=== PATIENT | female | born 1925 | race Caucasian/White ===

== ENCOUNTER 2016-07-31 10:27 | Inpatient (IN) | payer OTHER, MEDICARE ==
[~2016-07-31] VITALS: Ht 152.4 cm; Wt 61.2 kg
[~2016-07-31 10:27] MED LIST: ASPIRIN81 M4 PO; AUGMENTIN 875-1 EACH PO; DONEPEZIL HCL10 M1 PO; ELIQUIS2.5 M1 PO; FUROSEMIDE20 M1 PO; ISOSORBIDE MONO60 M1 PO; LEVSIN-SL0.125 MG SL; METOPROLOL SUCC50 M2 PO; TRAZODONE HCL50 M1 PO
--- NOTE | 2016-07-31 10:48 | NUR ---
PT TO ED WITH C/O PAIN TO RIGHT 4TH TOE, PER DAUGHTER PT HAS HX OF GOUT.
--- NOTE | 2016-07-31 11:03 | ED UPPER/LOWER EXTREMITY COMPL ---
History of Present Illness General Chief Complaint: Lower Extremity Problems Stated Complaint: TOE INFECTION Source: patient, family Exam Limitations: no limitations Vital Signs & Intake/Output Vital Signs & Intake/Output Vital Signs Date Time Temp Pulse Resp B/P Pulse O2 O2 Flow FiO2 Ox Delivery Rate 07/31 1451 63 18 129/64 98 07/31 1200 98 Room Air 07/31 1049 97.9 68 20 110/64 96 Room Air Room Air Allergies Coded Allergies: NO KNOWN ALLERGIES (11/04/11) Reconcile Medications Apixaban (Eliquis) 2.5 MG TABLET 1 TAB PO DAILY BLOOD THINNER (Reported) Reason to Stop at ADM: pre OR Aspirin (Aspirin*) 81 MG TAB.CHEW 2 TAB PO DAILY HEART HEALTH (Reported) Reason to Stop at ADM: pre OR Donepezil HCl 10 MG TABLET 1 TAB PO DAILY DEMENTIA (Reported) Furosemide 20 MG TABLET 1 TAB PO DAILY WATER PILL (Reported) Reason to Stop at ADM: LISA Isosorbide Mononitrate (Isosorbide Mononitrate ER) 60 MG TAB.ER.24H 1 TAB PO DAILY HEART (Reported) Metoprolol Succinate 50 MG TAB.ER.24H 1 TAB PO DAILY HEART (Reported) Ramipril 10 MG CAPSULE 1 CAP PO DAILY Blood pressure (Reported) Reason to Stop at ADM: LISA Sertraline HCl 50 MG TABLET 1 TAB PO DAILY Depression (Reported) Triage Note: PT TO ED WITH C/O PAIN TO RIGHT 4TH TOE, PER DAUGHTER PT HAS HX OF GOUT. Triage Nurses Notes Reviewed? yes Onset: Gradual Duration: constant Timing: recent history Severity: moderate Severity Numbers: 5 Method of Injury: unknown No Modifying Factors: none HPI: Patient is an 89-year-old female with past medical history of gout, hypertension and pacemaker placement, AFIB, [place] and osteomyelitis to the left fifth digit of hand with surgical debridement performed here [facility] remotely who presents emergency room with son for concerns of an unknown onset of left second toe and right fourth toe swelling. Patient states that the pain is only onset with putting on shoes Denies any discharge denies any redness or warmth or mechanism of injury or trauma. Patient hasn't taken any medications for symptoms. Denies any fevers (SHANIKA COHEN) Past History Travel History Traveled to [place] past 21 day No Medical History Any Pertinent Medical History? see below for history Neurological: TIA EENT: NONE Cardiovascular: AFIB, CAD, hypertension, myocardial infarction, NSTEMI, PACEMAKER LCW CABG X 3 DYSLIPIDEMIA ABDOMINAL AND ILLAC ANEURYSMS MITRAL AND TRICUSPID REGURGATATION PULMONARY HTN Respiratory: NONE Gastrointestinal: NONE Hepatic: NONE Renal: NONE Musculoskeletal: NONE Psychiatric: anxiety Endocrine: BOARDERLINE DIABETES Blood Disorders: VITAMIN D DEFICENCY Cancer(s): NONE OPERATIONS LOGISTICS ANALYST/Reproductive: NONE History of MRSA: No History of VRE: No History of CDIFF: No Influenza Vaccine: 07/01/13 Surgical History Surgical History: CABG, CARDIAC CATH, PACEMAKER Psychosocial History Who do you live with Son Services at Home None What is your primary language Slovenian Tobacco Use: Never used ETOH Use: denies use Illicit Drug Use: denies illicit drug use Family History Hx Contributory? No (SHANIKA COHEN) Review of Systems Review of Systems Constitutional: Reports: see HPI. Denies: chills, fever. EENTM: Reports: no symptoms. Respiratory: Reports: no symptoms. Cardiovascular: Reports: no symptoms. Gastrointestinal/Abdominal: Reports: no symptoms. Genitourinary: Reports: no symptoms. Musculoskeletal: Reports: see HPI, joint swelling. Denies: joint pain. Skin: Reports: see HPI. Denies: erythema. Neurological/Psychological: Reports: no symptoms. Hematologic/Endocrine: Reports: no symptoms. Immunological: Reports: no symptoms. All Other Systems: Reviewed and Negative (SHANIKA COHEN) Physical Exam Physical Exam General Appearance: no apparent distress, alert Head: atraumatic Cardiovascular/Respiratory: tachycardia Peripheral Pulses: 2+ dorsalis pedis (R), 2+ dorsalis pedis (L) Back: normal inspection Neurologic/Tendon: normal sensation, normal motor functions, normal tendon functions, responds to pain, no evidence tendon injury, no pulse deficit Skin: intact, normal color, warm/dry Comments: Well-developed well-nourished no apparent distress. HEENT: Atraumatic, extraocular motion intact Neck: Supple, no lymphadenopathy Back: Nontender Respiratory: No respiratory distress Extremities: Bilateral ankles normal inspection nontender Bilateral lower extremity dermatomes intact, pedal pulses +2 capillary refill less than 2 seconds Neuro: Alert and oriented x3 Psych: Mood affect normal, normal memory normal judgment. Diagram Feet Top 1) 8 mm fluctuance noted, nontender no erythema no warmth no discharge 2) 8 mm fluctuance noted, nontender no erythema no warmth no discharge (SHANIKA COHEN) Progress Differential Diagnosis: arterial insufficiency, compartment syndrome, contusion, dislocation, DVT, fracture, gout, septic arthritis, sprain, tendon injury, OSTEOMYELITIS, CYSTS, GOUT, CELLULITIS, PSEUDOGOUT Plan of Care: Orders Procedure Date/time Status Nothing by Mouth 08/01 B Active CBC WITHOUT DIFFERENTIAL 08/01 0600 Active BASIC ELECTROLYTES PLUS BUN&CR 08/01 0600 Active Heart Healthy Diet 07/31 D Active Pathway - chart 07/31 1417 Active Pathway - chart 07/31 1342 Active House Staff 07/31 1342 Active Code Status 07/31 1342 Active OXYGEN SETUP (GEN) 07/31 1333 Active Saline Lock 07/31 1333 Active Admit to inpatient 07/31 1333 Active Vital Signs 07/31 1333 Active Activity/Ambulation 07/31 1333 Active Code Status 07/31 1333 Complete Patient Data 07/31 1325 Active Add-on Test (ER Only) 07/31 1319 Active COMPREHENSIVE METABOLIC PANEL 07/31 1319 Active EKG 07/31 1319 Active Patient Data 07/31 1318 Active COMPREHENSIVE METABOLIC PANEL 07/31 1235 Complete Katz, Insertion/Removal/Asses 07/31 1220 Complete WESTERGREN SED RATE 07/31 1138 Complete C-REACTIVE PROTEIN 07/31 1138 Complete CBC WITHOUT DIFFERENTIAL 07/31 1138 Complete Lab Add-on Test 07/31 UNK Active VTE Mechanical Prophylaxis 07/31 UNK Active Intake & Output 07/31 UNK Active Current Medications Sig/Tereso Start time Last Medication Dose Stop Time Status Admin Donepezil HCl 10 MG DAILY 08/01 1000 AC (Aricept) Isosorbide 60 MG DAILY 08/01 1000 AC Mononitrate (Imdur) Metoprolol Succinate 50 MG DAILY 08/01 1000 AC (Toprol XL) Sertraline HCl 50 MG DAILY 08/01 1000 AC (Zoloft) Acetaminophen 650 MG Q6P PRN 07/31 1430 AC (Tylenol) Ketorolac 15 MG Q6P PRN 07/31 1430 AC Tromethamine 08/05 1429 (Toradol) Morphine Sulfate 2 MG Q6P PRN 07/31 1430 AC (Morphine) Laboratory Tests 07/31/16 1235: Anion Gap 10, Estimated GFR 47 L, BUN/Creatinine Ratio 31.8 H, Glucose 97, Calcium 9.6, Total Bilirubin 0.7, AST 24, ALT 30, Alkaline Phosphatase 84, C- Reactive Prot, Quant < 0.5, Total Protein 7.1, Albumin 3.6, Globulin 3.5, Albumin/Globulin Ratio 1.0 L, CBC w Diff NO MAN DIFF REQ, RBC 4.58, MCV 88.3, MCH 28.9, RDW 15.3 H, MPV 8.3, Gran % 71.9, Lymphocytes % 17.4 L, Monocytes % 9.2, Eosinophils % 1.2, Basophils % 0.3, Absolute Granulocytes 5.1, Absolute Lymphocytes 1.2, Absolute Monocytes 0.7 H, Absolute Eosinophils 0.1, Absolute Basophils 0, PUBS MCHC 32.7 L, ESR Westergren 11 07/31/16 1220: Urine Color Cancelled, Urine Clarity Cancelled, Urine pH Cancelled, Ur Specific [place] Cancelled, Urine Protein Cancelled, Urine Ketones Cancelled, Urine Nitrite Cancelled, Urine Bilirubin Cancelled, Urine Urobilinogen Cancelled, Ur Leukocyte Esterase Cancelled, Ur Microscopic Cancelled, Urine Hemoglobin Cancelled, Urine Glucose Cancelled Microbiology 07/31 1220 URINE ROUT: Urine Culture - CAN Cancelled: Cancelled via OE: Error At this time patient has no signs of infectious process to patient's toes. Patient does have nontender fluctuant soft tissue swelling to the toes mentioned in the exam findings X-rays and blood work will be obtained for further evaluation Denies any systemic signs or symptoms of infection. No active discharge no erythema no warmth and no signs of cellulitis Skin is intact 07/31/2016 1:27:56 PM x-rays show concerns of acute osteomyelitis to patient's right fourth digit. Patient has no emergent warranting of antibiotics and will be warranted for admission and have MRI and bone biopsy to evaluate proper antibiotics for patient's critical findings of osteomyelitis. Outpatient treatment at this time would be medically harmful. Discussed disposition plan with family members were aware and have no questions. (JOSHUA NORTH,SHANIKA) Diagnostic Imaging: Viewed by Me: Radiology Read. Radiology Impression: acute abnormality Initial ED EKG: normal p-waves, normal QRS complex, 127 BPM SINUS TACHYCARDIA Comments: PATIENT: SERGIO ARAUJO PRESENT AGE: 89 PATIENT ACCOUNT NO: [id number] : [birth year] LOCATION: [facility] ORDERING PHYSICIAN: SHANIKA NORTH SERVICE DATE: 07/31/16 EXAM TYPE: RAD - XRY-TOES, LEFT EXAMINATION: XR TOES, LEFT CLINICAL INFORMATION: Left second toe swelling at the level of the phalanx COMPARISON: None TECHNIQUE: 3 views of the left toes were obtained. FINDINGS: Marked degenerative changes of the first metatarsophalangeal joint with hallux valgus deformity. Pannus formation is seen at this level as well as along the tarsal bones and second metatarsophalangeal joint. There is extensive soft tissue swelling of the second toe without erosive changes. IMPRESSION: 1. Soft tissue swelling of the second toe without erosive changes to suggest osteomyelitis. More sensitive evaluation can be obtained with MRI as clinically indicated. 2. Extensive degenerative changes as detailed above, worst at the metatarsophalangeal joints of the first and second toes as well as along the tarsal bones. PATIENT: SERGIO ARAUJO PRESENT AGE: 89 PATIENT ACCOUNT NO: [id number] : [birth year] LOCATION: [facility] ORDERING PHYSICIAN: SHANIKA NORTH SERVICE DATE: 07/31/16 EXAM TYPE: RAD - XRY-TOES, RIGHT EXAMINATION: XR TOES, RIGHT CLINICAL INFORMATION: Right fourth phalanx swelling. COMPARISON: 10/21/2014 TECHNIQUE: 3 views of the right toes were obtained. FINDINGS: Soft tissue swelling of the fourth toe centered at the interphalangeal joints with erosive changes and near complete erosion of the middle phalanx. Marked degenerative changes of the first metatarsophalangeal joint without acute erosive change. Pannus formation is seen at the first metatarsophalangeal joint, fifth metatarsophalangeal joint along the lateral aspect of the tarsometatarsal joint. IMPRESSION: 1. Acute osteomyelitis of the fourth toe with near complete erosion of the middle phalanx. 2. Extensive degenerative changes as above. (JOSHUA NORTH,SHANIKA) Departure Departure Disposition: STILL A PATIENT Condition: Stable Clinical Impression Primary Impression: Acute osteomyelitis of toe of right foot Referrals: BAYRON NAGY,BRITTNEE Shah (PCP/Family) Departure Forms: Customer Survey General Discharge Information Admission Note Spoke With: HANSEL RAY MD Documentation of Exam: Documentation of any treatments & extenuating circumstances including Concerns Regarding Discharge (functional status, medication knowledge or non-compliance, living conditions, etc.) that warrant an admission rather than observation: [ Discussed patient with Dr. Ray who agrees with general medicine admission for concerns of acute osteomyelitis of the right toe. Antibiotics will currently be withheld until MRI and biopsy of the bone and culture to be obtained, outpatient treatment at this time due to critical findings of osteomyelitis would be medically harmful. Patient requires podiatry consultation] (SHANIKA COHEN) PA/LACING CUTTER Co-Sign Statement Statement: ED Attending supervision documentation- x I saw and evaluated the patient. I have also reviewed all the pertinent lab results and diagnostic results. I agree with the findings and the plan of care as documented in the PA's/LACING CUTTER's documentation. [] I have reviewed the ED Record and agree with the PA's/LACING CUTTER's documentation. [] Additions or exceptions (if any) to the PAs/LACING CUTTER's note and plan are summarized below: [] (FELIBERTO NAGY,ALYSHA) Critical Care Note Critical Care Note Critical Care Time: 30-74 min (SHANIKA COHEN)
--- NOTE | 2016-07-31 11:15 | NUR ---
PT ARRIVES AMBULATORY WITH DAUGHTER FOR EVAL OF PAIN OF RIGHT FORTH TOE. DAUGHTER REPORTS THAT PT HAS A LUMP ON THE TOE THAT "LOOKS LIKE THE SAME KIND OF INFECTION SHE HAD ON HER FINGER AROUND [place] AND THEY HAD TO AMPUTATE THAT." DAUGHTER STATES SHE CONTACTED PT PCP AND WAS ADVISED TO BRING PT TO ER. PT NOTED TO HAVE A PALE LUMP ON RIGHT FORTH TOE AND LEFT SECOND TOE. PT STATES IT ONLY HURTS HER WHEN SHE PUTS PRESSURE ON IT. DENIES ANY OTHER COMPLAINTS. PT IS NOTED TO BE PLEASANTLY CONFUSED. VSS. NO ACUTE DISTRESS NOTED. WILL MONITOR.
--- NOTE | 2016-07-31 11:36 | NUR ---
TRIAGE NOTE ACKNOWLEDGED AND RN CARE ASSUMED PT EVALUATED BY PA STUDENT AND SHANIKA NORTH
--- NOTE | 2016-07-31 12:43 | NUR ---
PT TO AND BACK FROM RADIOLOGY
[2016-07-31 12:52] LABS: ABSOLUTE BASOPHIL COUNT 0 /CUMM (0.0-0.2); ABSOLUTE EOSINOPHIL COUNT 0.1 /CUMM (0.0-0.7); ABSOLUTE GRANULOCYTE CT 5.1 /CUMM (1.4-6.5); ABSOLUTE LYMPH COUNT 1.2 /CUMM (1.2-3.4); ABSOLUTE MONOCYTE COUNT 0.7 /CUMM (0.10-0.60); BASOPHIL % 0.3 % (0.0-2.0); EOSINOPHIL % 1.2 % (0-5); GRANULOCYTE % 71.9 % (42.2-75.2); HEMATOCRIT 40.4 % (37-47); MEAN CORPUSCULAR HGB 28.9 PG (27.0-31.0); MEAN CORPUSCULAR HGB CONC 32.7 G/DL (33.0-37.0); MEAN CORPUSCULAR VOLUME 88.3 FL (81.0-99.0); MEAN PLATELET VOLUME 8.3 FL (7.4-10.4); PLATELET COUNT 162 /CUMM (130-400); RBC DISTRIBUTION WIDTH 15.3 % (11.5-14.5); RED BLOOD CELL CT 4.58 /CUMM (4.20-5.40); WHITE BLOOD CELL COUNT 7.2 /CUMM (4.8-10.8)
--- NOTE | 2016-07-31 12:53 | RADIOLOGY REPORT ---
EXAMINATION: XR TOES, LEFT CLINICAL INFORMATION: Left second toe swelling at the level of the phalanx COMPARISON: None TECHNIQUE: 3 views of the left toes were obtained. FINDINGS: Marked degenerative changes of the first metatarsophalangeal joint with hallux valgus deformity. Pannus formation is seen at this level as well as along the tarsal bones and second metatarsophalangeal joint. There is extensive soft tissue swelling of the second toe without erosive changes. IMPRESSION: 1. Soft tissue swelling of the second toe without erosive changes to suggest osteomyelitis. More sensitive evaluation can be obtained with MRI as clinically indicated. 2. Extensive degenerative changes as detailed above, worst at the metatarsophalangeal joints of the first and second toes as well as along the tarsal bones.
--- NOTE | 2016-07-31 12:55 | RADIOLOGY REPORT ---
EXAMINATION: XR TOES, RIGHT CLINICAL INFORMATION: Right fourth phalanx swelling. COMPARISON: 10/21/2014 TECHNIQUE: 3 views of the right toes were obtained. FINDINGS: Soft tissue swelling of the fourth toe centered at the interphalangeal joints with erosive changes and near complete erosion of the middle phalanx. Marked degenerative changes of the first metatarsophalangeal joint without acute erosive change. Pannus formation is seen at the first metatarsophalangeal joint, fifth metatarsophalangeal joint along the lateral aspect of the tarsometatarsal joint. IMPRESSION: 1. Acute osteomyelitis of the fourth toe with near complete erosion of the middle phalanx. 2. Extensive degenerative changes as above.
--- NOTE | 2016-07-31 13:15 | NUR ---
CAN GARCIA AT BEDSIDE TO DISCUSS PLAN TO ADMIT. PT AGREEABLE TO PLAN. 20G IV PLACED IN LEFT AC. FLUSHED PER PROTOCOL. NO REDNESS, SWELLING, PAIN, OR HEAT AT SITE. PT TOLERATED PROCEDURE WELL.
[2016-07-31] MEDS ORDERED: SERTRALINE HCL50 MG PO (14:23)
[2016-07-31] MEDS ORDERED: RAMIPRIL10 M1 PO (14:23)
--- NOTE | 2016-07-31 14:26 | History & Physical ---
VIDA KIMBALL MD 07/31/16 1412: General Information and HPI MD Statement: I have seen and personally examined SERGIO ARAUJO and documented this H&P. The patient is a 89 year old F who presented with a patient stated chief complaint of right foot pain. Source of Information: patient, family Exam Limitations: no limitations History of Present Illness: 89 year old woman with significant past medical history of Atrial fibrillation on eliquis, CAD/OK s/p CABGx3 & Packemaker in 2000, and gout seen for evaluation of right foot pain. Patient told her son Teddy, whom she lives with, that her right foot was bothering her this morning. She reports to medicine staff that it has been painful for roughly one month. She reports mild pain/discomfort in the foot without any history of trauma. No specific alleviating/aggravating factors. She was recently admitted to [facility] from 05/18/16-05/20/16 for left upper extremity 5th digit osteomyelitis requiring distal amputation. Additionally she denies any headache, fever, chills, chest pain, palpitations, shortness of breath, nausea, vomiting, diarrhea, urinary frequency/urgency/ burning/pain, constipation, numbness/tingling. 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" Allergies/Medications Allergies: Coded Allergies: NO KNOWN ALLERGIES (11/04/11) Home Med list Apixaban (Eliquis) 2.5 MG TABLET 1 TAB PO DAILY BLOOD THINNER (Reported) Reason to Stop at ADM: pre OR Aspirin (Aspirin*) 81 MG TAB.CHEW 2 TAB PO DAILY HEART HEALTH (Reported) Reason to Stop at ADM: pre OR Donepezil HCl 10 MG TABLET 1 TAB PO DAILY DEMENTIA (Reported) Furosemide 20 MG TABLET 1 TAB PO DAILY WATER PILL (Reported) Reason to Stop at ADM: LISA Isosorbide Mononitrate (Isosorbide Mononitrate ER) 60 MG TAB.ER.24H 1 TAB PO DAILY HEART (Reported) Metoprolol Succinate 50 MG TAB.ER.24H 1 TAB PO DAILY HEART (Reported) Ramipril 10 MG CAPSULE 1 CAP PO DAILY Blood pressure (Reported) Reason to Stop at ADM: LISA Sertraline HCl 50 MG TABLET 1 TAB PO DAILY Depression (Reported) Past History Travel History Traveled to [place] past 21 day No Medical History Neurological: TIA EENT: NONE Cardiovascular: AFIB, CAD, hypertension, myocardial infarction, NSTEMI, PACEMAKER LCW CABG X 3 DYSLIPIDEMIA ABDOMINAL AND ILLAC ANEURYSMS MITRAL AND TRICUSPID REGURGATATION PULMONARY HTN Respiratory: NONE Gastrointestinal: NONE Hepatic: NONE Renal: NONE Musculoskeletal: gout Psychiatric: anxiety Endocrine: BOARDERLINE DIABETES Blood Disorders: VITAMIN D DEFICENCY Cancer(s): NONE PET COUNSELOR/Reproductive: NONE History of MRSA: No History of VRE: No History of CDIFF: No Influenza Vaccine: 07/01/13 Surgical History Surgical History: CABG, CARDIAC CATH, PACEMAKER Past Family/Social History Psychosocial History Who Do You Live With? child Services at Home: None Primary Language: Romansh ETOH Use: denies use Illicit Drug Use: denies illicit drug use Living Will? yes Functional Ability ADLs Independent: dressing, eating, toileting, bathing. Review of Systems Review of Systems Constitutional: Reports: see HPI. Exam & Diagnostic Data Last 24 Hrs of Vital Signs/I&O Vital Signs Date Time Temp Pulse Resp B/P Pulse O2 O2 Flow FiO2 Ox Delivery Rate 07/31 1200 98 Room Air 07/31 1049 97.9 68 20 110/64 96 Room Air Room Air Intake & Output 07/31 1600 07/31 0800 07/31 0000 Intake Total 0 Output Total Balance 0 Intake, IV 0 Patient 61.235 kg Weight Physical Exam General Appearance Alert, Oriented X3, Cooperative, No Acute Distress Skin No Rashes, No Breakdown, No Significant Lesion HEENT Atraumatic, EOMI, Mucous Membr. moist/pink Neck Supple Cardiovascular Normal S1, Normal S2, No Murmurs Lungs Clear to Auscultation, Normal Air Movement Abdomen Normal Bowel Sounds, Soft, No Tenderness, No Hepatospenomegaly, No Masses Neurological Normal Speech, Normal Tone Extremities Multiple small lower extremity wounds, Tophaceous changes in bilateral lower extremities, Right lower extremity 4th digit tophi with mild tenderness, no fluctuance, left lower extremity 2nd digit tophi with minimal fluctuance, mild tenderness Vascular Diminished distal pulses Last 24 Hrs of Labs/Carlos: Laboratory Tests 07/31/16 1235: Anion Gap 10, Estimated GFR 47 L, BUN/Creatinine Ratio 31.8 H, Glucose 97, Calcium 9.6, Total Bilirubin 0.7, AST 24, ALT 30, Alkaline Phosphatase 84, C- Reactive Prot, Quant < 0.5, Total Protein 7.1, Albumin 3.6, Globulin 3.5, Albumin/Globulin Ratio 1.0 L, CBC w Diff NO MAN DIFF REQ, RBC 4.58, MCV 88.3, MCH 28.9, RDW 15.3 H, MPV 8.3, Gran % 71.9, Lymphocytes % 17.4 L, Monocytes % 9.2, Eosinophils % 1.2, Basophils % 0.3, Absolute Granulocytes 5.1, Absolute Lymphocytes 1.2, Absolute Monocytes 0.7 H, Absolute Eosinophils 0.1, Absolute Basophils 0, PUBS MCHC 32.7 L, ESR Westergren 11 07/31/16 1220: Urine Color Cancelled, Urine Clarity Cancelled, Urine pH Cancelled, Ur Specific [place] Cancelled, Urine Protein Cancelled, Urine Ketones Cancelled, Urine Nitrite Cancelled, Urine Bilirubin Cancelled, Urine Urobilinogen Cancelled, Ur Leukocyte Esterase Cancelled, Ur Microscopic Cancelled, Urine Hemoglobin Cancelled, Urine Glucose Cancelled Microbiology 07/31 1220 URINE ROUT: Urine Culture - CAN Cancelled: Cancelled via OE: Error Assessment/Plan Assessment: 89 year old woman with multiple medical problems significant for an extensive cardiovascular history and recent admission for left upper extremity 5th digit osteomyelitis requiring amputation seen for evaluation of mild right foot/toe pain. Vital signs on initial evaluation are within normal limits. Physical examination demonstrates multiple tophaceous changes to the digits of hands and feet with minimal tenderness to palpation of the right 4th lower extremity digit and a normal cardiopulmonary examination. Lab work demonstrated WBC 7.2, CRP < 0.05, ESR 11. Xray obtained of left and right feet are suggestive of left 2nd toe and right 4th toe osteomyelitis. Podiatry consult was placed and patient was admitted to the general medicine floor. Possible Osteomyelitis of left 2nd toe & right 4th toe: History of Gout and Osteomyelitis of 5th left finger requiring amputation ( May 2016). Patient has obvious chronic changes suggestive of tophaceous gout. Patient not currently taking any treatment stating she "doesn't wanna take more meds". -NPO for possible debridement -Podiatry consult History of Atrial Fibrillation: -Hold eliquis for possible debridement CAD CABGx3 s/p PM - stable, continue Aspirin, Nitro Hypertension - stable, continue metoprolol Depression - stable, continue sertraline 50mg PO Daily Diet - NPO for possible debridement, start Heart Healthy Diet afterwards DVT PPx - ALPS Code Status - DNR/DNI As Ranked By This Provider Problem List: 1. Acute osteomyelitis of toe of right foot Core Measures/Miscellaneous Acute Coronary Syndrome ACS Diagnosis: No Cerebrovascular Accident CVA/TIA Diagnosis: No Congestive Heart Failure CHF Diagnosis: No Venous Thromboembolism VTE Risk Factors: Acute medical illness, Age > 40 VTE Prophylaxis Ordered Inpt: Mechanical (ALPS/TEDS) No Mech VTE prophylaxis d/t: No contraindications No VTE Pharm Prophylaxis d/t: Surgical contraindication VTE Diagnosis: No VTE Type: NONE VTE Confirmed by (Test): NONE Severe Sepsis Severe Sepsis Present: No Septic Shock Septic Shock Present: No Miscellaneous Documentation Attending Case Discussed With: CORKY JIANG MD Primary Care Physician: BRITTNEE VERMA MD Patient sees these Specialists Dr. Batista Level of Patient Care: General Medicine Consults Needed: Consulting Specialty: Podiatry YVROSE NAGY,YASMEEN 07/31/16 3767: Resident Review Statement Resident Statement: examined this patient, discussed with internal medicine doctor, agreed with internal medicine doctor, discussed with family, reviewed EMR data (avail), discussed with nursing , reviewed images, amended to note Other Findings: 89 yo female with pmh of CAD s/p CABG (2000), NSTEMI s/p biventricular PM (2011) , hx of A.fib on eliquis, gout came with pain in Rt. 4th toe and Lt. 2nd toe for about 1 month. She was recently admitted to [facility] in due to Lt. 5th finger osteomyelitis s/p amputation of PIP joint by Dr. Valdivia. She denies any previous injury on feet. She had discomfort/mild pain on both feet. No fever/chills, cough/sputum, SOB/CP, n/v/abodminal pain. V/S: 97.9F RI 68 RR 20 BP 110/64 pulse Ox 96% on RA on physical exam: General: alert, oriented x 3, not in acute distress, HEENT: PERRLA, EOM intact, moist mucosa, neck: supple, no JVD, cardiovascular: regular, normal S1/S2, systolic murmur, lungs: CTA, abdomen: soft, non-tender, normal bowel sounds, Ext: Lt. 5th PIP amputated, tophi on multiple hand joints, no LE pitting edema, Rt. 4th toe tophi with tenderness, Lt. 2nd toe tophi with tenderness, normal pulses Labs: wbc 7.2, ESR 11, BUN/Cr 35/1.1, CRP< 0.5, Rt. toes X-ray: 1. Acute osteomyelitis of the fourth toe with near complete erosion of the middle phalanx. 2. Extensive degenerative changes as above. Lt. toes x-ray: 1. Soft tissue swelling of the second toe without erosive changes to suggest osteomyelitis. More sensitive evaluation can be obtained with MRI as clinically indicated. 2. Extensive degenerative changes as detailed above, worst at the metatarsophalangeal joints of the first and second toes as well as along the tarsal bones. EKG: Ventricular paced rhythm at rate 124, QTc 520 1. Acute osteomyelitis with gouty tohi: podiatry consult, hold IV antibiotics until getting bone bx, follow CBC, ESR/CRP were unremarkable. NPO after midnight for possible OR procedure tmr. Pain pathway to control pain. 2. CAD s/p CABG: will hold aspirin for now. continue b-dulce 3. Hx of A.fib s/p biventricular PM: pt was on prophylactic dose of eliquis 2.5mg daily (following Dr. Batista). Will hold eliquis for now, resume tmr if patient is not getting any procedure. DVT ppx: mechanical, holding eliquis anticipating bone bx, DNR/I. CORKY JIANG MD 08/01/16 1348: Attending MD Review Statement Attending Statement Attending MD Statement: examined this patient, discuss w/resident/PA/TECHNICAL SALES REPRESENTATIVE, agreed w/resident/PA/TECHNICAL SALES REPRESENTATIVE, reviewed EMR data (avail) Attending Assessment/Plan: 89F PMH chronic atrial fibrillation on eliquis, CAD/OK s/p CABGx3 s/p Packemaker in 2000, Alzheimer's dementia and gout presents with left second and right fourth two erythema and discomfort, with evident tophi present on both toes. Patient is sleepy and confused and unable to provide history, but family at bedside is able to. Patient has been slowly deteriorating for the past 4 years, but more so over the past few months, with confusion, non-sensical speech, and requiring assistance with all ADLs. Cared for by patient's children, lives primarily with son. X-ray shows evidence of osteomyelitis in toes. On exam there are visible tophi and erythema. ESR 8, normal WBC, afebrile, stable vitals. Plan - Admit to general medicine - Hold antibiotics - Podiatry consult - Check uric acid level - Send blood cultures - Continue home medications - Will need alf placement on discharge
--- NOTE | 2016-07-31 15:04 | Cons- Podiatry ---
General Information and HPI Consulting Request Date of Consult: 07/31/16 Requested By: CORKY JIANG MD History of Present Illness: Svetlana is an 89-year-old female who presents today with a recent worsening complaint of pain to the digits of her left and right feet. The patient apparently has a history of chronic gout with tophaceous deposits. The patient denies any systemic signs of infection. Patient denies nausea vomiting fever chills. Allergies/Medications Allergies: Coded Allergies: NO KNOWN ALLERGIES (11/04/11) Home Med List: Apixaban (Eliquis) 2.5 MG TABLET 1 TAB PO DAILY BLOOD THINNER (Reported) Reason to Stop at ADM: pre OR Aspirin (Aspirin*) 81 MG TAB.CHEW 2 TAB PO DAILY HEART HEALTH (Reported) Reason to Stop at ADM: pre OR Donepezil HCl 10 MG TABLET 1 TAB PO DAILY DEMENTIA (Reported) Furosemide 20 MG TABLET 1 TAB PO DAILY WATER PILL (Reported) Reason to Stop at ADM: LISA Isosorbide Mononitrate (Isosorbide Mononitrate ER) 60 MG TAB.ER.24H 1 TAB PO DAILY HEART (Reported) Metoprolol Succinate 50 MG TAB.ER.24H 1 TAB PO DAILY HEART (Reported) Ramipril 10 MG CAPSULE 1 CAP PO DAILY Blood pressure (Reported) Reason to Stop at ADM: LISA Sertraline HCl 50 MG TABLET 1 TAB PO DAILY Depression (Reported) Past History Medical History Neurological: TIA EENT: NONE Cardiovascular: AFIB, CAD, hypertension, myocardial infarction, NSTEMI, PACEMAKER LCW CABG X 3 DYSLIPIDEMIA ABDOMINAL AND ILLAC ANEURYSMS MITRAL AND TRICUSPID REGURGATATION PULMONARY HTN Respiratory: NONE Gastrointestinal: NONE Hepatic: NONE Renal: NONE Musculoskeletal: gout Psychiatric: anxiety Endocrine: BOARDERLINE DIABETES Blood Disorders: VITAMIN D DEFICENCY Cancer(s): NONE 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 child Services at Home: None Primary Language: Bangladeshi ETOH Use: denies use Illicit Drug Use: denies illicit drug use Living Will? yes Functional Ability ADLs Independent: dressing, eating, toileting, bathing. Review of Systems Review of Systems: Unremarkable except for that noted in history present illness Exam & Diagnostic Data Vital Signs and I&O Vital Signs Date Time Temp Pulse Resp B/P Pulse O2 O2 Flow FiO2 Ox Delivery Rate 07/31 1451 63 18 129/64 98 07/31 1200 98 Room Air 07/31 1049 97.9 68 20 110/64 96 Room Air Room Air Intake & Output 07/31 1600 07/31 0800 07/31 0000 07/30 1600 07/30 0807/30 0000 Intake Total 0 Output Total Balance 0 Intake, IV 0 Patient 135 lb Weight Physical Exam: Significant gouty tophaceous deposits noted to the left second and right fourth digits. No loss of soft tissue integrity identified. No drainage noted. No cellulitis noted. X-ray findings right foot demonstrate erosive changes to the middle phalanx of the fourth digit read as probable osteomyelitis. Assessment/Plan Assessment/Plan Tophaceous gouty arthritis involving the digits of the left and right feet with questionable osteomyelitis to the fourth toe right foot. Consider an MRI to further characterize the erosive changes noted on x-ray and if equivocal will schedule the patient for a bone biopsy. Consult Acknowledgment - Thank you for your consult request. Attending MD Review Statement Attending Statement Attending MD Statement: examined this patient
--- NOTE | 2016-07-31 16:27 | NUR ---
REPORT GIVEN TO FEDERICO VAUGHN ON 2NB. PT TO BE TRANSFERRED TO ROOM 209-1. DISTRIBUSTION CALLED.
[2016-07-31 16:51] VITALS: BP 120/62
--- NOTE | 2016-07-31 18:33 | NUR ---
3274 PATIENT ARRIVED TO FLOOR PATIENT ALERT TO SELF. PATIENT IS CONFUSED AND IMPULSIVE. VITAL SIGNS STABLE. ON ROOM AIR. NO DISCOMFORT NOTED BED ALARM ON. BED LOW AND LOCKED. CALL LIGHT WITHIN REACH.
[2016-07-31 22:07] VITALS: BP 107/73
--- NOTE | 2016-08-01 07:30 | PN- Housestaff ---
REHANA NAGY,VIDA 08/01/16 0730: Subjective Follow-up For: Right foot pain Subjective: Patient seen and examined. She is seen lying flat in bed resting comfortably. She appears to be in no acute distress. At the bedside is the patient safety monitor whom offers no further collateral information regarding patients status as states "shes been okay". Also at bedside is patients daughter whom is up to date about her clinical condition and has no further questions at this time. Patient is not oriented to person/place/time and subjective complaints cannot be obtained at this moment. Patients daughter was interviewed and she states that sammiatley her brother Teddy and her have decided that their mother needs further evaluation of her "dementia" that has been present for "5 years" and that they can no longer care for her. They are [facility] in a [facility] facility after medical stabilization. Review of systems is unobtainable. Patient was reported pulling at her IV lines and attemping unsafe ambulation overnight for which patient safety monitor was ordered. Review of Systems Constitutional: Reports: see HPI. Objective Last 24 Hrs of Vital Signs/I&O Vital Signs Date Time Temp Pulse Resp B/P Pulse O2 O2 Flow FiO2 Ox Delivery Rate 08/01 1544 97.8 69 20 132/78 92 08/01 1341 97.2 72 20 120/80 93 Room Air 08/01 1333 Room Air Room Air 08/01 1225 Room Air Room Air 08/01 0951 130/80 08/01 0951 130/80 08/01 0810 97.5 72 20 120/64 91 Room Air 07/31 2207 98.1 69 20 107/73 94 Intake & Output 08/01 1600 08/01 0800 08/01 0000 Intake Total 0 300 Output Total 200 200 400 Balance -200 100 -400 Intake, IV 0 300 Intake, Oral 0 Number 0 Bowel Movements Output, Urine 200 200 400 Patient 61.235 kg Weight Physical Exam General Appearance: No Acute Distress Other Physical Findings: General - well developed, well nourished elderly woman in no acute distress HEENT - NCAT, EOMI, PERRL, anicteric sclera CVS - S1, S2 w/o m/g/r Resp - CTA bilaterally GI - Soft, nontender, nondistended, bowel sounds intact Neuro - disoriented with soft nonsensical speech, not oriently to person/place/ time, CN II - XII grossly intact Ext - 1+ distal pulses, no lower extremity edema, chronic tophaceous changes Current Medications: Current Medications Sig/Tereso Start time Last Medication Dose Route Stop Time Status Admin Acetaminophen 650 MG Q6P PRN 07/31 1430 AC PO Ampicillin Sodium/ 3,000 MG Q12 08/01 2200 AC Sulbactam Sodium IV Sodium Chloride 100 ML Donepezil HCl 10 MG DAILY 08/01 1000 AC 08/01 PO 0951 Isosorbide 60 MG DAILY 08/01 1000 AC 08/01 Mononitrate PO 0951 Ketorolac 15 MG Q6P PRN 07/31 1430 AC Tromethamine IV 08/05 1429 Metoprolol Succinate 50 MG DAILY 08/01 1000 AC 08/01 PO 0951 Morphine Sulfate 2 MG Q6P PRN 07/31 1430 AC IV Patient Medication 1 ED .STK-MED ONE 08/01 1356 DC Teaching ED 08/01 1357 Sertraline HCl 50 MG DAILY 08/01 1000 AC 08/01 PO 0951 Sodium Chloride 1,000 ML Q20H 07/31 1430 DC 07/31 IV 08/01 1029 1436 Last 24 Hrs of Lab/Carlos Results Last 24 Hrs of Labs/Mics: Laboratory Tests 08/01/16 0704: Anion Gap 11, Estimated GFR 42 L, BUN/Creatinine Ratio 27.5 H, CBC w Diff NO MAN DIFF REQ, RBC 4.56, MCV 88.3, MCH 29.4, RDW 15.3 H, MPV 8.9, Gran % 70.4, Lymphocytes % 19.3 L, Monocytes % 8.4, Eosinophils % 1.5, Basophils % 0.4, Absolute Granulocytes 4.2, Absolute Lymphocytes 1.1 L, Absolute Monocytes 0.5, Absolute Eosinophils 0.1, Absolute Basophils 0, PUBS MCHC 33.3 Microbiology 08/01 1741 BLOOD: Blood Culture - COLB 08/01 1741 BLOOD: Blood Culture - COLB 08/01 1208 EXTREMITIE: Culture & Sensitivity - CAN Cancelled: ORDERED WRONG 08/01 1208 EXTREMITIE: Gram Stain - CAN Cancelled: ORDERED WRONG 08/01 1208 EXTREMITIE: Gross Specimen Examination - RES 08/01 1208 EXTREMITIE: Gram Stain - RES Assessment/Plan Assessment: Patient appears to be confused and disoriented today. Daughter offers collateral information regarding this mental status changes and states that this kind of behavior is fairly normal for her. She is to be taken to the OR today for surgical debridement and potential bone biopsy of her right 4th toe. MRI cannot be obtained as patient has a pacemaker. Possible Osteomyelitis of left 2nd toe & right 4th toe: History of Gout and Osteomyelitis of 5th left finger requiring amputation ( May 2016). Patient has obvious chronic changes suggestive of tophaceous gout. Patient not currently taking any treatment stating she "doesn't wanna take more meds". -NPO for possible debridement -Podiatry consult History of Atrial Fibrillation: -Hold eliquis for possible debridement CAD CABGx3 s/p PM - stable, continue Aspirin, Nitro Hypertension - stable, continue metoprolol Depression - stable, continue sertraline 50mg PO Daily Diet - NPO for possible debridement, start Heart Healthy Diet afterwards DVT PPx - ALPS Code Status - DNR/DNI Problem List: 1. Acute osteomyelitis of toe of right foot Pain Ratin Pain Location: None Pain Goal: Remain pain free Pain Plan: As noted in plan Tomorrow's Labs & Rationales: CBC - post operative / possible osteomyelitis BEP - altered mental status, electrolyte monitoring Consulting Request: Consulting Specialty: Podiatry CORKY JIANG MD 08/01/16 7524: Attending MD Review Statement Attending Statement Attending MD Statement: examined this patient, discuss w/resident/PA/ENGINE ASSEMBLY SUPERVISOR, agreed w/resident/PA/ENGINE ASSEMBLY SUPERVISOR, reviewed EMR data (avail) Attending Assessment/Plan: 89F PMH chronic atrial fibrillation on eliquis, CAD/[place] s/p CABGx3 s/p Odiliaemaker in 2000, Alzheimer's dementia and gout presents with left second and right fourth two erythema and discomfort, with evident tophi present on both toes. Patient is sleepy and confused and unable to provide history, but family at bedside is able to. Patient has been slowly deteriorating for the past 4 years, but more so over the past few months, with confusion, non-sensical speech, and requiring assistance with all ADLs. Cared for by patient's children, lives primarily with son. X-ray shows evidence of osteomyelitis in toes. On exam there are visible tophi and erythema. ESR 8, normal WBC, afebrile, stable vitals. Plan - Admit to general medicine - Podiatry consult - May start Unasyn after OR - Send blood cultures - Follow up bone biopsy cultures - Continue home medications - Will need jail placement on discharge
[2016-08-01 08:00] LABS: ABSOLUTE BASOPHIL COUNT 0 /CUMM (0.0-0.2); ABSOLUTE EOSINOPHIL COUNT 0.1 /CUMM (0.0-0.7); ABSOLUTE GRANULOCYTE CT 4.2 /CUMM (1.4-6.5); ABSOLUTE LYMPH COUNT 1.1 /CUMM (1.2-3.4); ABSOLUTE MONOCYTE COUNT 0.5 /CUMM (0.10-0.60); BASOPHIL % 0.4 % (0.0-2.0); EOSINOPHIL % 1.5 % (0-5); GRANULOCYTE % 70.4 % (42.2-75.2); HEMATOCRIT 40.3 % (37-47); MEAN CORPUSCULAR HGB 29.4 PG (27.0-31.0); MEAN CORPUSCULAR HGB CONC 33.3 G/DL (33.0-37.0); MEAN CORPUSCULAR VOLUME 88.3 FL (81.0-99.0); MEAN PLATELET VOLUME 8.9 FL (7.4-10.4); PLATELET COUNT 144 /CUMM (130-400); RBC DISTRIBUTION WIDTH 15.3 % (11.5-14.5); RED BLOOD CELL CT 4.56 /CUMM (4.20-5.40); WHITE BLOOD CELL COUNT 5.9 /CUMM (4.8-10.8)
[2016-08-01 08:10] VITALS: BP 120/64
--- NOTE | 2016-08-01 10:57 | NUR ---
PATIENT OFF FLOOR TO OR VIA STRETCHER WITH DISTRIBUTION AND PATIENT SAFETY MONITOR; PATIENT IS A/CONFUSED; RA; AX1 OOB; NO COMPLAINTS OF PAIN; DAUGHTER DEB AND SON PHILIP NOTIFIED AND AWARE OF OR TIME; JEWELRY TAKEN BY DAUGHTER; UPPER DENTURES REMOVED AND PLACED IN DENTURE CUP AT BEDSIDE; AWAITING REPORT AND RETURN OF PATIENT TO FLOOR;
[2016-08-01 13:41] VITALS: BP 120/80
--- NOTE | 2016-08-01 13:41 | NUR ---
PATIENT RETURNED TO ROOM FROM OR VIA STRETCHER WITH DISTRIBUTION; PATIENT IS LETHARGIC BUT AROUSABLE TO PAINFUL STIMULI; VITALS STABLE (SEE INTERVENTION); DESTINEE DRESSING TO R FOOT C/D/I; DR WILLOUGHBY NOTIFIED AND AWARE OF PATIENT'S VITALS AND MENTAL STATUS; NO FURHTER ORDERS AT THIS TIME; PATIENT SAFETY MONITOR REMAINS AT BEDSIDE TO MAINTAIN SAFETY; WILL CONTINUE TO MONITOR PATIENT;
[2016-08-01 15:44] VITALS: BP 132/78
--- NOTE | 2016-08-01 17:10 | Operative Report ---
Operative/Inv Procedure Report Surgery Date: 08/01/16 Name of Procedure: 1 open incision and drainage deep to the deep fascia with exposure of the extensor tendon and tendon sheath multiple sites right foot 2 debridement of necrotic bone right foot 3 intraoperative administration of ankle block anesthesia 4 excisional debridement Pre-Operative Diagnosis: 1 necrotic wound right foot 2 osteomyelitis right foot 3 chronic tophaceous gout right foot Post-Operative Diagnosis: The same Estimated Blood Loss: less than 50ml Surgeon/Studio Operations Manager: HANNAH DUMONT DPM Anesthesia: moderate sedation, block Operative/Procedure Note Note: After obtaining informed consent the patient was brought to the operating room and placed on the operating table in the supine position. The patient isn't securely fastened to the operating table utilizing safety belt. After IV administration of anesthesia, 10 mL of 0.5% Marcaine plain was infiltrated about the patient's right ankle. The right foot and ankle within scrubbed prepped and draped in usual aseptic manner. Attention directed dorsal aspect the right foot overlying the fourth metatarsophalangeal joint and the fourth digit. A linear incision was made over the tophaceous gout. It was then deviated to the subtenons tissues. Dissection was then carried down deep to the D fashion with exposure of the extensor tendon and tendon sheath multiple sites, both proximally and distally. All necrotic nonviable infected tissue sharply evacuated wound bed. Bone specimen was then harvested from the remaining middle phalanx of the fourth digit this was sent for both microbiologic and pathologic inspection.. There was significant gouty tophi noted within the joint space. Nipple was then irrigated with 3 L normal sterile saline infusion 50,000 units of bacitracin. The digit was then packed and 4-0 nylon retention sutures were placed followed by 4 x 4's Beth and an Yovany wrap. The patient was noted tolerate both procedure and anesthesia well and the patient was transported from the operating room to recovery by sent stable best assess intact all digits right foot.
--- NOTE | 2016-08-01 17:27 | Admission Certification ---
Admission Certification Certification Statement - As attending physician, I certify that at the time of - admission, based on clinical presentation, severity of - symptoms, need for further diagnostic testing and - therapeutic interventions, and risk of adverse outcomes - without in-hospital treatment, in my clinical assessment, - this patient requires an acute hospital stay for a minimum - of two nights or longer. I have also considered psychsocial - factors such as support system, advanced age, financial - issues, cognitive issues, and failed out-patient treatments, - past re-admission history, safety of patient, and lack of - compliance as applicable. Specific rationale supporting this admission is: Altered mental status and possible osteomyelitis of the left second toe
[2016-08-01 23:40] VITALS: BP 135/100
--- NOTE | 2016-08-02 07:12 | PN- Housestaff ---
See Addendum REHANA NAGYVIDA 08/02/16 0712: Subjective Follow-up For: Right foot pain Subjective: Patient seen and examined. She is seen sitting upright in bed resting comfortably enjoying her breakfast. She appears to be in no acute distress. At her bedside is the patient safety monitor whom reports that the patient became combatitve last evening and "does better with female monitors", but otherwise admits she slept well. Patient is confused this morning and answer questions inappropriate and tangetially. Review of systems is unobtainable. No other overnight events reported, other than above. Review of Systems Constitutional: Reports: see HPI. Objective Last 24 Hrs of Vital Signs/I&O Vital Signs Date Time Temp Pulse Resp B/P Pulse O2 O2 Flow FiO2 Ox Delivery Rate 08/02 0854 97.6 72 18 126/68 96 Room Air 08/01 2340 97.5 68 20 135/100 98 Room Air 08/01 1544 97.8 69 20 132/78 92 08/01 1341 97.2 72 20 120/80 93 Room Air 08/01 1333 Room Air Room Air 08/01 1225 Room Air Room Air Intake & Output 08/02 1600 08/02 0800 08/02 0000 Intake Total 480 580 Output Total 200 Balance 280 580 Intake, IV 100 Intake, Oral 480 480 Output, Urine 200 Physical Exam General Appearance: Alert, Cooperative, No Acute Distress Other Physical Findings: General - well developed, well nourished elderly woman in no acute distress HEENT - NCAT, EOMI, PERRL, anicteric sclera CVS - S1, S2 w/o m/g/r Resp - CTA bilaterally GI - Soft, nontender, nondistended, bowel sounds intact Neuro - disoriented with soft nonsensical speech, not oriented to person/place/ time, CN II - XII grossly intact Ext - 1+ distal pulses, no lower extremity edema, chronic tophaceous changes, surgical dressing with minimal serosanguinous drainage to right foot Current Medications: Current Medications Sig/Tereso Start time Last Medication Dose Route Stop Time Status Admin Acetaminophen 650 MG Q6P PRN 07/31 1430 AC PO Ampicillin Sodium/ 3,000 MG Q12 08/01 2200 AC 08/02 Sulbactam Sodium IV 0959 Sodium Chloride 100 ML Donepezil HCl 10 MG DAILY 08/01 1000 AC 08/02 PO 1000 Isosorbide 60 MG DAILY 08/01 1000 AC 08/02 Mononitrate PO 1000 Ketorolac 15 MG Q6P PRN 07/31 1430 AC Tromethamine IV 08/05 1429 Metoprolol Succinate 50 MG DAILY 08/01 1000 AC 08/02 PO 0959 Morphine Sulfate 2 MG Q6P PRN 07/31 1430 AC IV Patient Medication 1 ED .STK-MED ONE 08/01 1356 NE Teaching ED 08/01 1357 Sertraline HCl 50 MG DAILY 08/01 1000 AC 08/02 PO 0959 Sodium Chloride 1,000 ML Q20H 07/31 1430 DC 07/31 IV 08/01 1029 1436 Last 24 Hrs of Lab/Carlos Results Last 24 Hrs of Labs/Mics: Laboratory Tests 08/02/16 0705: Anion Gap 12, Estimated GFR 47 L, BUN/Creatinine Ratio 30.0 H, CBC w Diff NO MAN DIFF REQ, RBC 4.61, MCV 87.9, MCH 29.1, RDW 15.1 H, MPV 9.0, Gran % 74.9, Lymphocytes % 14.4 L, Monocytes % 8.8, Eosinophils % 1.4, Basophils % 0.5, Absolute Granulocytes 4.6, Absolute Lymphocytes 0.9 L, Absolute Monocytes 0.5, Absolute Eosinophils 0.1, Absolute Basophils 0, PUBS MCHC 33.1 Microbiology 08/01 1741 BLOOD: Blood Culture - CAN Cancelled: SPECIMEN NOT RECEIVED IN LABORATORY 08/01 1741 BLOOD: Blood Culture - CAN Cancelled: SPECIMEN NOT RECEIVED IN LABORATORY 08/01 1208 EXTREMITIE: Culture & Sensitivity - CAN Cancelled: ORDERED WRONG 08/01 1208 EXTREMITIE: Gram Stain - CAN Cancelled: ORDERED WRONG 08/01 1208 EXTREMITIE: Gross Specimen Examination - RES 08/01 1208 EXTREMITIE: Gram Stain - RES Assessment/Plan Assessment: Patient continues to remain confused and disoriented today, however is pleasant and in no acute distress. Patient tolerated the surgical debridement well yesterday, bone biopsy results pending. She is to be made NPO after midnight tonight with closure at 11:[address] Sierra. PT evaluation placed today for discharge recommendations. Case management found placement for patient at [facility]. Sitter discontinued today. PT evaluation pending. Consult placed with infectious disease today for evaluation of antibiotics. Possible Osteomyelitis of left 2nd toe & right 4th toe: History of Gout and Osteomyelitis of 5th left finger requiring amputation ( May 2016). Patient has obvious chronic changes suggestive of tophaceous gout. Patient not currently taking any treatment stating she "doesn't wanna take more meds". -NPO overnight for closure -Podiatry consult -F/U Bone/tissue culture History of Atrial Fibrillation: -Hold eliquis for possible debridement CAD CABGx3 s/p PM - stable, continue Aspirin, Nitro Hypertension - stable, continue metoprolol Depression - stable, continue sertraline 50mg PO Daily Diet - Heart Healthy Diet, NPO After mightnight for surgical revision in morning DVT PPx - ALPS Code Status - DNR/DNI Problem List: 1. Altered mental status Pain Ratin Pain Location: Right foot Pain Goal: Pain 4 or less Pain Plan: As noted in plan Tomorrow's Labs & Rationales: CBC - possible osteomyelitis Consulting Request: Consulting Specialty: Podiatry CORKY JIANG MD 08/02/16 1425: Attending MD Review Statement Attending Statement Attending MD Statement: examined this patient, discuss w/resident/PA/CLASSIFIER OPERATOR, agreed w/resident/PA/CLASSIFIER OPERATOR, reviewed EMR data (avail) Attending Assessment/Plan: 89F PMH chronic atrial fibrillation on eliquis, CAD/[place] s/p CABGx3 s/p Odiliaemaker in 2000, Alzheimer's dementia and gout presents with left second and right fourth two erythema and discomfort, with evident tophi present on both toes. Patient is sleepy and confused and unable to provide history, but family at bedside is able to. Patient has been slowly deteriorating for the past 4 years, but more so over the past few months, with confusion, non-sensical speech, and requiring assistance with all ADLs. Cared for by patient's children, lives primarily with son. X-ray shows evidence of osteomyelitis in toes. On exam there are visible tophi and erythema. ESR 8, normal WBC, afebrile, stable vitals. Went to OR for debridement and culture on 08/01, tolerated procedure well. Plan - Continue on general medicine - Follow podiatry recommendations - Obtain ID consult - Continue Unasyn - Send blood cultures - Follow up bone biopsy cultures - Continue home medications - Will need prison placement on discharge
[2016-08-02 08:11] LABS: ABSOLUTE BASOPHIL COUNT 0 /CUMM (0.0-0.2); ABSOLUTE EOSINOPHIL COUNT 0.1 /CUMM (0.0-0.7); ABSOLUTE GRANULOCYTE CT 4.6 /CUMM (1.4-6.5); ABSOLUTE LYMPH COUNT 0.9 /CUMM (1.2-3.4); ABSOLUTE MONOCYTE COUNT 0.5 /CUMM (0.10-0.60); BASOPHIL % 0.5 % (0.0-2.0); EOSINOPHIL % 1.4 % (0-5); GRANULOCYTE % 74.9 % (42.2-75.2); HEMATOCRIT 40.6 % (37-47); MEAN CORPUSCULAR HGB 29.1 PG (27.0-31.0); MEAN CORPUSCULAR HGB CONC 33.1 G/DL (33.0-37.0); MEAN CORPUSCULAR VOLUME 87.9 FL (81.0-99.0); PLATELET COUNT 143 /CUMM (130-400); RBC DISTRIBUTION WIDTH 15.1 % (11.5-14.5); RED BLOOD CELL CT 4.61 /CUMM (4.20-5.40); WHITE BLOOD CELL COUNT 6.2 /CUMM (4.8-10.8)
[2016-08-02 08:54] VITALS: BP 126/68
--- NOTE | 2016-08-02 15:43 | Cons- Infect Disease ---
General Information and HPI Consulting Request Date of Consult: 08/02/16 Requested By: CORKY JIANG MD Reason for Consult: Rule out osteomyelitis of the right fourth toe Source of Information: patient, old records Exam Limitations: dementia History of Present Illness: This is an 89-year-old woman with a history of coronary artery disease, status post CABG, borderline diabetes and gout, status post amputation of the left fifth finger over 2 months prior to admission for inflammation of the finger after an x-ray was felt to be consistent with osteomyelitis, with pathology revealing a large gouty tophus with adjacent bone tissue with features "consistent with acute osteomyelitis", discharged on Augmentin to complete a two -week course of antibiotics, admitted on July 31 with pain of the right fourth toe. On admission she was afebrile. Exam revealed tophaceous changes to the toes of the lower extremities. Laboratory data revealed a white blood cell count of 7000, ESR 11, BUN/creatinine 35 and 1.1, uric acid 7.9, with normal liver enzymes. X-ray of the right toes revealed soft tissue swelling of the fourth toe with erosive changes and near complete erosion of the middle phalanx, interpreted as osteomyelitis. X-ray of the left toes revealed soft tissue swelling of the second toe without erosive changes to suggest osteomyelitis. She was followed off antibiotics. On August 01 she was taken to the OR for debridement of necrotic tissue/bone of the right fourth toe. Postop she was placed on Unasyn. She has remained afebrile since admission. Presently she is without complaints but her history is limited secondary to dementia. Allergies/Medications Allergies: Coded Allergies: NO KNOWN ALLERGIES (11/04/11) Home Med List: Apixaban (Eliquis) 2.5 MG TABLET 1 TAB PO DAILY BLOOD THINNER (Reported) Reason to Stop at ADM: pre OR Aspirin (Aspirin*) 81 MG TAB.CHEW 2 TAB PO DAILY HEART HEALTH (Reported) Reason to Stop at ADM: pre OR Donepezil HCl 10 MG TABLET 1 TAB PO DAILY DEMENTIA (Reported) Furosemide 20 MG TABLET 1 TAB PO DAILY WATER PILL (Reported) Reason to Stop at ADM: LISA Isosorbide Mononitrate (Isosorbide Mononitrate ER) 60 MG TAB.ER.24H 1 TAB PO DAILY HEART (Reported) Metoprolol Succinate 50 MG TAB.ER.24H 1 TAB PO DAILY HEART (Reported) Ramipril 10 MG CAPSULE 1 CAP PO DAILY Blood pressure (Reported) Reason to Stop at ADM: LISA Sertraline HCl 50 MG TABLET 1 TAB PO DAILY Depression (Reported) Past History Travel History Traveled to [place] past 21 day No Medical History Neurological: TIA EENT: NONE Cardiovascular: AFIB, CAD, hypertension, myocardial infarction, mitral regurgitation, NSTEMI, PACEMAKER LCW, abdominal and iliac artery aneurysms ( abdominal and iliac artery ane), carotid artery disease Respiratory: pulmonary hypertension Gastrointestinal: NONE Hepatic: NONE Renal: NONE Musculoskeletal: gout Psychiatric: anxiety Endocrine: BOARDERLINE DIABETES Blood Disorders: VITAMIN D DEFICENCY Cancer(s): NONE INTERVIEWING CLERK/Reproductive: NONE History of MRSA: No History of VRE: No History of CDIFF: No Isolation History: Standard Influenza Vaccine: 03/01/16 Surgical History Surgical History: appendectomy, CABG, PACEMAKER Psychosocial History Who Do You Live With? child Services at Home: None Primary Language: Belgian Smoking Status: Unknown If Ever Smoked ETOH Use: denies use Illicit Drug Use: denies illicit drug use Living Will? yes Functional Ability ADLs Independent: dressing, eating, toileting, bathing. Review of Systems Comments unobtainable Exam & Diagnostic Data Last 24 Hrs of Vital Signs/I&O Vital Signs Date Time Temp Pulse Resp B/P Pulse O2 O2 Flow FiO2 Ox Delivery Rate 08/02 1000 72 126/68 02 0959 72 126/68 02 0854 97.6 72 18 126/68 96 Room Air 02/ 2340 97.5 68 20 135/100 98 Room Air 08/01 1544 97.8 69 20 132/78 92 Intake & Output 08/02 1600 08/02 0800 08/02 0000 Intake Total 500 480 580 Output Total 350 200 Balance 150 280 580 Intake, IV 100 100 Intake, Oral 400 480 480 Output, Urine 350 200 Patient 135 lb Weight Physical Exam Other Physical Findings: She is awake and alert, disoriented, but in no acute distress. She is afebrile. Skin reveals no rash. HEENT exam is negative. Neck is supple with no adenopathy. Lungs crackles at the left base. Heart regular rhythm with no murmur. Abdomen is soft, nontender with positive bowel sounds. Back no CVA tenderness. Extremities tophaceous deposits over the right index finger, left ring finger and left second toe; dressing intact over the right fourth toe; no cyanosis, clubbing or edema. Neuro is without focality. Last 24 Hours of Lab Results: Laboratory Tests 08/02 0705 Chemistry Sodium (137 - 145 mmol/L) 144 Potassium (3.5 - 5.1 mmol/L) 4.5 Chloride (98 - 107 mmol/L) 110 H Carbon Dioxide (22 - 30 mmol/L) 22 Anion Gap (5 - 16) 12 BUN (7 - 17 mg/dL) 33 H Creatinine (0.5 - 1.0 mg/dL) 1.1 H Estimated GFR (>60 ml/min) 47 L BUN/Creatinine Ratio (7 - 25 %) 30.0 H Hematology CBC w Diff NO MAN DIFF REQ WBC (4.8 - 10.8 /CUMM) 6.2 RBC (4.20 - 5.40 /CUMM) 4.61 Hgb (12.0 - 16.0 G/DL) 13.4 Hct (37 - 47 %) 40.6 MCV (81.0 - 99.0 FL) 87.9 MCH (27.0 - 31.0 PG) 29.1 RDW (11.5 - 14.5 %) 15.1 H Plt Count (130 - 400 /CUMM) 143 MPV (7.4 - 10.4 FL) 9.0 Gran % (42.2 - 75.2 %) 74.9 Lymphocytes % (20.5 - 51.1 %) 14.4 L Monocytes % (1.7 - 9.3 %) 8.8 Eosinophils % (0 - 5 %) 1.4 Basophils % (0.0 - 2.0 %) 0.5 Absolute Granulocytes (1.4 - 6.5 /CUMM) 4.6 Absolute Lymphocytes (1.2 - 3.4 /CUMM) 0.9 L Absolute Monocytes (0.10 - 0.60 /CUMM) 0.5 Absolute Eosinophils (0.0 - 0.7 /CUMM) 0.1 Absolute Basophils (0.0 - 0.2 /CUMM) 0 PUBS MCHC (33.0 - 37.0 G/DL) 33.1 Last 24 Hours of Carlos Results: OR culture labeled right fourth toe bone August 01 negative after 1 day, with gram stain revealing few white blood cells and no organisms Diagnostic Data Recent Imaging Findings: X-ray of the right toes revealed soft tissue swelling of the fourth toe with erosive changes and near complete erosion of the middle phalanx. X-ray of the left toes revealed soft tissue swelling of the second toe without erosive changes to suggest osteomyelitis. Assessment/Plan Assessment/Plan Impression: This is an 89-year-old woman with history of dementia and gout, status post left fifth finger amputation 2 months prior to admission after presenting with inflammation of the finger, with pathology revealing a large gouty tophus with bony features "consistent with osteomyelitis", admitted on July 31 with right foot pain, with x-ray interpreted as acute osteomyelitis of the fourth toe, now status post debridement of the right fourth toe yesterday. Her clinical picture is most consistent with gout, with evidence of tophaceous deposits on the fingers of both hands and her left second toe, and I suspect this is the likely explanation for her x-ray findings. There does not appear to be any evidence for infection, with no fevers or leukocytosis and with her OR culture so far negative; therefore her antibiotics can be discontinued. Suggestion: 1. Rheumatology evaluation 2. Follow-up final OR culture and pathology 3. Discontinue Unasyn and follow off antibiotics Consult Acknowledgment - Thank you for your consult request.
[2016-08-02 15:59] VITALS: BP 118/67
--- NOTE | 2016-08-02 23:17 | Patient Discharge Instructions ---
Discharge Instructions General Discharge Information You were seen/treated for: Rt. foot osteomyelitis Rt. foot chronic gout Acute delirium with baseline dementia You had these procedures: Open I & D, debridement, bone biopsy Watch for these problems: fever, worsening pain Other wound care: Continue wound care on surgical site, Rt. foot. Special Instructions: Please follow up with a primary doctor after discharge within 1 week Please follow up with a re examiner for bone biopsy & culture results. Please follow up with a instructional developer in 1 month for gout management and BEP/ uric acid monitor Diet Continue normal diet: Yes Recommended Diet: Heart Healthy Activity Full Activity/No Limits: Yes Activity Self Limited: Yes Activity Limited to: Weight bear as tolerated Other activity limits: Fall precaution Acute Coronary Syndrome Inclusion Criteria At DC or during hospital stay patient has or had the following: ACS DIAGNOSIS No Discharge Core Measures Meds if any: Prescribed or Continued at Discharge Meds if any: NOT Prescribed or Continued at Discharge Congestive Heart Failure Inclusion Criteria At DC or during hospital stay patient has or had the following: CHF DIAGNOSIS No Discharge Core Measures Meds if any: Prescribed or Continued at Discharge Meds if any: NOT Prescribed or Continued at Discharge Cerebrovascular accident Inclusion Criteria At DC or during hospital stay patient has or had the following: CVA/TIA Diagnosis No Discharge Core Measures Meds if any: Prescribed or Continued at Discharge Meds if any: NOT Prescribed or Continued at Discharge Venous thromboembolism Inclusion Criteria VTE Diagnosis No VTE Type NONE VTE Confirmed by (Test) NONE Discharge Core Measures - Per Current guidelines, there needs to be overlap - treatment for the first 5 days of Warfarin therapy. - If discharged on Warfarin prior to 5 days of - overlap therapy, the patient will need to be - assessed for post discharge needs including - *Post discharge parental anticoagulation - *Warfarin and/or parental anticoagulation education - *Follow up date to check INR post discharge At least 5 days overlap therapy as Inpatient Yes Meds if any: Prescribed or Continued at Discharge Note: Overlap Therapy is Warfarin and Anticoagulant Meds if any: NOT Prescribed or Continued at Discharge
--- NOTE | 2016-08-02 23:21 | Discharge Summary ---
Visit Information Visit Dates Admission Date: 07/31/16 Discharge Date: 08/03/16 Hospital Course Course Attending Physician: CORKY JIANG MD Primary Care Physician: BAYRON NAGY,BRITTNEE Shah Consulting Request: 1 Consulting Specialty: Podiatry Consulting Physician: Dr. Dumont Reason for Consult: Acute osteomyelitis Consulting Request: 2 Consulting Specialty: Infectious Disease Consulting Physician: Dr. Luna Reason for Consult: Acute osteomyelitis Consulting Request: 3 Consulting Specialty: Rheumatology Consulting Physician: Dr. Luke Reason for Consult: Gout arthritis Hospital Course: 89 yo female with pmh of CAD s/p CABG (2000), NSTEMI s/p biventricular PM (2011) , hx of A.fib on eliquis, gout, dementia came with pain in Rt. 4th toe and Lt. 2nd toe for about 1 month. She was recently admitted to [facility] in 2015 due to Lt. 5th finger osteomyelitis s/p amputation of PIP joint by Dr. Valdivia. She denies any previous injury on feet. She had discomfort/mild pain on both feet. No fever/chills, cough/sputum, SOB/CP, n/v/abodminal pain. V/S: 97.9F UT 68 RR 20 BP 110/64 pulse Ox 96% on RA on physical exam: General: alert, oriented x 3, not in acute distress, HEENT: PERRLA, EOM intact, moist mucosa, neck: supple, no JVD, cardiovascular: regular, normal S1/S2, systolic murmur, lungs: CTA, abdomen: soft, non-tender, normal bowel sounds, Ext: Lt. 5th PIP amputated, tophi on multiple hand joints, no LE pitting edema, Rt. 4th toe tophi with tenderness, Lt. 2nd toe tophi with tenderness, normal pulses Labs: wbc 7.2, ESR 11, BUN/Cr 35/1.1, CRP< 0.5, Rt. toes X-ray: 1. Acute osteomyelitis of the fourth toe with near complete erosion of the middle phalanx. 2. Extensive degenerative changes as above. Lt. toes x-ray: 1. Soft tissue swelling of the second toe without erosive changes to suggest osteomyelitis. More sensitive evaluation can be obtained with MRI as clinically indicated. 2. Extensive degenerative changes as detailed above, worst at the metatarsophalangeal joints of the first and second toes as well as along the tarsal bones. EKG: Ventricular paced rhythm at rate 124, QTc 520 Patient was admitted to general medicine floor for following problem lists; 1. Rt. foot Osteomyelitis: Podiatry / ID consults were obtained. She couldn't get MRI due to her incompatible pacemaker. She had Rt. foot open incision and drainage, & debridement of necrotic bone by Dr. Dumont on 08/01. After I&D, she was given IV unasyn but it was discontinued according to ID recommendation. She had closure of wound on 08/03. Her vital signs were stable without leukocytosis. Baseline ESR/CRP were unremarkable. She'll be discharged without any antibiotics. She needs to follow up with Dr. Dumont for bone biopsy & culture results. 2. CAD s/p CABG: aspirin was on hold before surgical procedure. We continued b- dulce. 3. Hx of A.fib s/p biventricular PM: At baseline, patient was on prophylactic dose of eliquis 2.5mg daily (following Dr. Batista). Eliquis was held anticipating surgical procedures. Eliquis can be resumed from 08/04. 4. Acute delirium with baseline dementia: Patient had dementia about 5 years, and her son & daughter were taking care of her at home. She became delirious after admission, and 1:1 sitter was placed. We avoided delirium triggers such as benzodiazepine, anticholinergics or constipation. We continued donepezil and she improved back to her baseline. 5. Gout: According to the patient's daughter the patient was diagnosed as gout many years ago. She refused medication at that time and subsequently. Rheumatology consult was obtained. She does not have typical acute gout attacks currently. She has mild renal insufficiency with BUN/creatinine 33/1.1 (2/). Uric acid level is elevated at 7.9. It was recommended to begin allopurinol 100mg daily with prophylaxis of acute attack. Her uric acid (goal < 6) and kidney function needs to be monitored in 1 month. Please follow up a rheumaotologist in 1 month. Allergies: Coded Allergies: NO KNOWN ALLERGIES (11/04/11) Significant Procedures: Operative/Inv Procedure Report Surgery Date: 08/01/16 Name of Procedure: 1 open incision and drainage deep to the deep fascia with exposure of the extensor tendon and tendon sheath multiple sites right foot 2 debridement of necrotic bone right foot 3 intraoperative administration of ankle block anesthesia 4 excisional debridement Pre-Operative Diagnosis: 1 necrotic wound right foot 2 osteomyelitis right foot 3 chronic tophaceous gout right foot Post-Operative Diagnosis: The same Estimated Blood Loss: less than 50ml Surgeon/Precipitation Equipment Tender: HANNAH DUMONT DPM 08/03/16 delayed primary closure of open surgical wound right foot Pertinent Lab Results: COMMENT: RIGHT 4TH TOE BONE Procedure Result > GRAM STAIN Final 08/01/16-142 WHITE BLOOD CELLS FEW OTHER NO ORGANISMS SEEN > EXTREMITIES OR SPECIMEN Preliminary 08/02/16-922 NO GROWTH AFTER 1 DAY Disposition Summary Disposition Principal Diagnosis: Rt. foot Osteomyelitis s/p incision & drainage, debridgement of necrotic bone Rt. foot chronic tophaceous gout Acute delirium with baseline dementia Additional Diagnosis: CAD s/p CABG Hx of A.fib s/p biventricular pacemaker on eliquis Discharge Disposition: SNF Discharge Instructions General Discharge Information Code Status: Do Not Resucitate/Intubat Patient's Diet: Heart healthy diet Patient's Activity: Weight bearing as tolerated Increase activity as tolerated Avoid fall risk Follow-Up Instructions/Appts: Please follow up with a primary doctor after discharge within 1 week Please follow up with a mortgage underwriter for bone biopsy & culture results. Please follow up with a sports broadcasting internship in 1 month for gout management and BEP/ uric acid monitor Medications at Discharge Discharge Medications: Continue taking these medications: Donepezil HCl (Donepezil HCl) 10 MG TABLET 1 Tablet ORAL DAILY Qty = 30 Comments: Last Taken: 05/20/16 Time: 1000 Apixaban (Eliquis) 2.5 MG TABLET 1 Tablet ORAL DAILY Qty = 120 Instructions: Reason to Stop at ADM: pre OR Comments: PT ONLY TAKES ONE Last Taken: 05/20/16 Time: 1000 Furosemide (Furosemide) 20 MG TABLET 1 Tablet ORAL DAILY Qty = 90 Instructions: Reason to Stop at ADM: LISA Comments: Last Taken: 05/20/16 Time: 1000 Metoprolol Succinate (Metoprolol Succinate) 50 MG TAB.ER.24H 1 Tablet ORAL DAILY Qty = 90 Comments: Last Taken: 05/20/16 Time: 1000 Isosorbide Mononitrate (Isosorbide Mononitrate ER) 60 MG TAB.ER.24H 1 Tablet ORAL DAILY Qty = 90 Comments: Last Taken: 05/20/16 Time: 1000 Aspirin (Aspirin*) 81 MG TAB.CHEW 2 Tablet ORAL DAILY Instructions: Reason to Stop at ADM: pre OR Comments: Last Taken: 05/20/16 Time: 1000 Sertraline HCl (Sertraline HCl) 50 MG TABLET 1 Tablet ORAL DAILY Qty = 45 Ramipril (Ramipril) 10 MG CAPSULE 1 Capsule ORAL DAILY Qty = 90 Instructions: Reason to Stop at ADM: LISA Start taking the following new medications: Allopurinol (Allopurinol) 100 MG TABLET 1 Tablet ORAL DAILY Qty = 30 No Refills Colchicine (Colchicine) 0.6 MG TABLET 1 Tablet ORAL DAILY Qty = 30 No Refills Copies To: DEDIRE NAGY,CORKY; TIM PIÑA,HANNAH; BAYRON NAGY,BRITTNEE Shah; YAIR NAGY,HANS Frazier
[2016-08-02 23:31] VITALS: BP 112/66
--- NOTE | 2016-08-03 07:12 | PN- Housestaff ---
REHANA NAGY,VIDA 08/03/16 0712: Subjective Follow-up For: Acute Gouty Arthritis Subjective: Patient seen and examined. She is seen lying flat in bed resting comfortably. She appears to be in no acute distress. At her bedside is her granddaughter and two great grand children whom are up to date about her clinical condition and have no further questions at this time. Patient reports feeling well and complaints of only minimal discomfort in her right foot. Additionally she denies any headache, fever, chills, chest pain, palpitations, shortness of breath, nausea, vomiting, diarrhea. No overnight events reported. Review of Systems Constitutional: Reports: see HPI. Objective Last 24 Hrs of Vital Signs/I&O Vital Signs Date Time Temp Pulse Resp B/P Pulse O2 O2 Flow FiO2 Ox Delivery Rate 08/03 1527 18 94 Room Air 08/03 1345 18 96 Nasal 1.0L Cannula 08/03 1345 97.4 61 18 112/58 91 Room Air 08/03 0928 98.4 68 18 128/66 08/03 0927 98.4 68 18 128/66 08/03 0819 97.1 62 18 117/62 92 Room Air 08/02 2331 98.6 67 20 112/66 95 Room Air 08/02 1559 98.7 62 19 118/67 92 Intake & Output 08/03 1600 08/03 0800 08/03 0000 Intake Total 650 Output Total 200 350 Balance -200 300 Intake, Oral 650 Number 1 Bowel Movements Output, Urine 200 350 Physical Exam General Appearance: Alert, Cooperative, No Acute Distress Other Physical Findings: General - well developed, well nourished elderly woman in no acute distress HEENT - NCAT, EOMI, PERRL, anicteric sclera CVS - S1, S2 w/o m/g/r Resp - CTA bilaterally GI - Soft, nontender, nondistended, bowel sounds intact Neuro - disoriented with soft nonsensical speech, not oriented to person/place/ time, CN II - XII grossly intact Ext - 1+ distal pulses, no lower extremity edema, chronic tophaceous changes, surgical dressing with minimal serosanguinous drainage to right foot Current Medications: Current Medications Sig/Tereso Start time Last Medication Dose Route Stop Time Status Admin Acetaminophen 650 MG Q6P PRN 07/31 1430 AC PO Ampicillin Sodium/ 3,000 MG Q12 08/01 2200 DC 08/02 Sulbactam Sodium IV 0959 Sodium Chloride 100 ML Donepezil HCl 10 MG DAILY 08/01 1000 AC 08/03 PO 09 Isosorbide 60 MG DAILY 08/01 1000 AC 08/03 Mononitrate PO 09 Ketorolac 15 MG Q6P PRN 07/31 1430 AC Tromethamine IV 08/05 1429 Metoprolol Succinate 50 MG DAILY 08/01 1000 AC 08/03 PO 0928 Morphine Sulfate 2 MG Q6P PRN 07/31 1430 AC IV Patient Medication 1 ED .STK-MED ONE 08/03 1342 [place] Teaching ED 08/03 1343 Sertraline HCl 50 MG DAILY 08/01 1000 AC 08/03 PO 0928 Last 24 Hrs of Lab/Carlos Results Last 24 Hrs of Labs/Mics: Laboratory Tests 08/03/16 0615: CBC w Diff NO MAN DIFF REQ, RBC 4.16 L, MCV 88.3, MCH 29.3, RDW 14.7 H, MPV 9.0, Gran % 68.7, Lymphocytes % 18.2 L, Monocytes % 11.4 H, Eosinophils % 1.3, Basophils % 0.4, Absolute Granulocytes 4.3, Absolute Lymphocytes 1.1 L, Absolute Monocytes 0.7 H, Absolute Eosinophils 0.1, Absolute Basophils 0, PUBS MCHC 33.2 Assessment/Plan Assessment: Patient is more awake and alert today and is answering questions appropriately. She reports only minimal pain in the surgical site. She was NPO overnight for surgical revision with Dr. Sierra at 11:30am today. She tolerated the procedure well and is to be discharged to [facility]. Cultures are now growing coagulase negative gram positive cocci which likely represent a contaminant. She is to be follow off antibiotics. Dr. Luke evaluated the patient and recommend a regimen of allopurinol and colchine for treatment of her gouty arthritis. She is continued on this medications on dicharge. She will require follow up of her uric acid and renal function in one months time. Acute Gouty Arthritis: History of Gout and Osteomyelitis of 5th left finger requiring amputation ( May 2016). Patient has obvious chronic changes suggestive of tophaceous gout. Patient not currently taking any treatment stating she "doesn't wanna take more meds". -Allopurinol/Colchicine -Bone Culture: gram positive cocci, coagulase negative -Podiatry consult -Rheumatology Consult -ID consult History of Atrial Fibrillation: -Hold eliquis for possible debridement CAD CABGx3 s/p PM - stable, continue Aspirin, Nitro Hypertension - stable, continue metoprolol Depression - stable, continue sertraline 50mg PO Daily Diet - Heart Healthy Diet DVT PPx - ALPS Code Status - DNR/DNI Problem List: 1. Gout Pain Ratin Pain Location: Right foot Pain Goal: Pain 4 or less Pain Plan: As noted in plan Tomorrow's Labs & Rationales: None Consulting Request: Consulting Specialty: Podiatry DEIDRE NAGY,CORKY 08/03/16 1226: Attending MD Review Statement Attending Statement Attending MD Statement: examined this patient, discuss w/resident/PA/FISHERIES OFFICER, agreed w/resident/PA/FISHERIES OFFICER, reviewed EMR data (avail) Attending Assessment/Plan: 89F PMH chronic atrial fibrillation on eliquis, CAD/SD s/p CABGx3 s/p Packemaker in 2000, Alzheimer's dementia and gout presents with left second and right fourth two erythema and discomfort, with evident tophi present on both toes. Patient is sleepy and confused and unable to provide history, but family at bedside is able to. Patient has been slowly deteriorating for the past 4 years, but more so over the past few months, with confusion, non-sensical speech, and requiring assistance with all ADLs. Cared for by patient's children, lives primarily with son. X-ray shows evidence of osteomyelitis in toes. On exam there are visible tophi and erythema. ESR 8, normal WBC, afebrile, stable vitals. Went to OR for debridement and culture on 08/01, tolerated procedure well. Plan - Continue on general medicine - Will go to OR for wound closure today - Follow podiatry recommendations - Obtain ID consult - Monitor off antibiotics - Follow blood and wound cultures - Continue home medications - Will need snf placement on discharge
[2016-08-03 07:55] LABS: ABSOLUTE BASOPHIL COUNT 0 /CUMM (0.0-0.2); ABSOLUTE EOSINOPHIL COUNT 0.1 /CUMM (0.0-0.7); ABSOLUTE GRANULOCYTE CT 4.3 /CUMM (1.4-6.5); ABSOLUTE LYMPH COUNT 1.1 /CUMM (1.2-3.4); ABSOLUTE MONOCYTE COUNT 0.7 /CUMM (0.10-0.60); BASOPHIL % 0.4 % (0.0-2.0); EOSINOPHIL % 1.3 % (0-5); GRANULOCYTE % 68.7 % (42.2-75.2); HEMATOCRIT 36.7 % (37-47); MEAN CORPUSCULAR HGB 29.3 PG (27.0-31.0); MEAN CORPUSCULAR HGB CONC 33.2 G/DL (33.0-37.0); MEAN CORPUSCULAR VOLUME 88.3 FL (81.0-99.0); PLATELET COUNT 124 /CUMM (130-400); RBC DISTRIBUTION WIDTH 14.7 % (11.5-14.5); RED BLOOD CELL CT 4.16 /CUMM (4.20-5.40); WHITE BLOOD CELL COUNT 6.3 /CUMM (4.8-10.8)
[2016-08-03 08:19] VITALS: BP 117/62
--- NOTE | 2016-08-03 10:44 | Cons- Rheumatology ---
General Information and HPI Consulting Request Date of Consult: 08/03/16 Requested By: CORKY JIANG MD Reason for Consult: Evaluate for gout Source of Information: family, old records Exam Limitations: clinical condition History of Present Illness: I am asked to see this 89-year-old female with multiple medical problems to evaluate the pathologic findings of tophaceous deposits in her toes. Apparently 2 months ago she underwent a partial left fifth finger amputation by Dr. Ritchie. She currently is admitted for the finding of "osteomyelitis" of her right fourth toe that has been debrided by podiatry. Apparently x-rays were read as compatible with osteomyelitis but also compatible with gout. I'm asked to evaluate her from this perspective and recommend possible therapy. According to the patient's daughter the patient was diagnosed as having gout many years ago. She apparently refused medication at that time and subsequently. She does not describe typical acute gout attacks she has mild renal insufficiency but a recent creatinine is 1.1 and BUNs 35. Of note is that her uric acid level is elevated at 7.9. Allergies/Medications Allergies: Coded Allergies: NO KNOWN ALLERGIES (11/04/11) Home Med List: Apixaban (Eliquis) 2.5 MG TABLET 1 TAB PO DAILY BLOOD THINNER (Reported) Reason to Stop at ADM: pre OR Aspirin (Aspirin*) 81 MG TAB.CHEW 2 TAB PO DAILY HEART HEALTH (Reported) Reason to Stop at ADM: pre OR Donepezil HCl 10 MG TABLET 1 TAB PO DAILY DEMENTIA (Reported) Furosemide 20 MG TABLET 1 TAB PO DAILY WATER PILL (Reported) Reason to Stop at ADM: LISA Isosorbide Mononitrate (Isosorbide Mononitrate ER) 60 MG TAB.ER.24H 1 TAB PO DAILY HEART (Reported) Metoprolol Succinate 50 MG TAB.ER.24H 1 TAB PO DAILY HEART (Reported) Ramipril 10 MG CAPSULE 1 CAP PO DAILY Blood pressure (Reported) Reason to Stop at ADM: LISA Sertraline HCl 50 MG TABLET 1 TAB PO DAILY Depression (Reported) Current Medications: Current Medications Sig/Tereso Start time Last Medication Dose Route Stop Time Status Admin Acetaminophen 650 MG Q6P PRN 07/31 1430 AC PO Ampicillin Sodium/ 3,000 MG Q12 08/01 2200 DC 08/02 Sulbactam Sodium IV 0959 Sodium Chloride 100 ML Donepezil HCl 10 MG DAILY 08/01 1000 AC 08/03 PO 0926 Isosorbide 60 MG DAILY 08/01 1000 AC 08/03 Mononitrate PO 0927 Ketorolac 15 MG Q6P PRN 07/31 1430 AC Tromethamine IV 08/05 1429 Metoprolol Succinate 50 MG DAILY 08/01 1000 AC 08/03 PO 0928 Morphine Sulfate 2 MG Q6P PRN 07/31 1430 AC IV Sertraline HCl 50 MG DAILY 08/01 1000 AC 08/03 PO 0928 Review of Systems Review of Systems: There is no history of kidney stones or psoriasis. The patient has mild dementia but history is provided by her daughter. 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 child Services at Home: None Primary Language: Tajik Smoking Status: Unknown If Ever Smoked ETOH Use: denies use Illicit Drug Use: denies illicit drug use Living Will? yes Functional Ability ADLs Independent: dressing, eating, toileting, bathing. Exam & Diagnostic Data Vital Signs and I&O Vital Signs Date Time Temp Pulse Resp B/P Pulse O2 O2 Flow FiO2 Ox Delivery Rate 08/03 927 98.4 68 18 128/66 08/03 0927 98.4 68 18 128/66 08/03 0819 97.1 62 18 117/62 92 Room Air 08/02 2331 98.6 67 20 112/66 95 Room Air 08/02 1559 98.7 62 19 118/67 92 Intake & Output 08/03 1600 08/03 0800 08/03 0000 Intake Total 650 Output Total 200 350 Balance -200 300 Intake, Oral 650 Number 1 Bowel Movements Output, Urine 200 350 Physical Exam: On examination she is an elderly lady somewhat confused lying in bed in no distress she is afebrile. [place] in several fingers revealed small tophaceous deposits over several fingers. This also degenerative changes with bony enlargement particularly of her right second MCP joint. No tophi over her right elbow per her left elbow has an impressive large hard tophaceous deposit measuring approximately 3 x 5 cm. Her knees exhibit fairly good range of motion without swelling or tenderness. Her right foot is bandaged but there is a dressing over the fourth toe with dark discoloration from previous surgery. Her left foot reveals the second toe has some prominence with some vague yellowish- appearing subcutaneous deposit. Assessment/Plan Assessment: This probably represents long-standing tophaceous gout. X-ray reports showing destruction could be compatible with osteomyelitis but certainly in the setting of tophaceous gout more likely represents this condition. Ideally she should've taken allopurinol many years ago. Tubular allopurinol can result in long-term reduction of tophaceous deposits. Recommendations: Even know it is unlikely to be of much benefit at this late time I still would recommend beginning allopurinol 100 mg daily. Her uric acid and renal function tests should be monitored after one month. Ideally her uric acid level should be reduced to under 6.0mg. Note that beginning allopurinol could precipitate acute gout attacks and ideally she should be given prophylaxis either in the form of prednisone 5 mg daily or colchicine 0.6 mg daily. Consult Acknowledgment - Thank you for your consult request.
[2016-08-03] MEDS ORDERED: ALLOPURINOL100 M1 PO (11:03)
[2016-08-03] MEDS ORDERED: COLCHICINE0.6 M2 PO (11:04)
--- NOTE | 2016-08-03 12:24 | PN- Infect Dx ---
Subjective Subjective: Afebrile without complaints Objective Last 24 Hrs of Vital Signs/I&O Vital Signs Date Time Temp Pulse Resp B/P Pulse O2 O2 Flow FiO2 Ox Delivery Rate 08/03 927 98.4 68 18 128/66 08/03 09 98.4 68 18 128/66 08/03 0819 97.1 62 18 117/62 92 Room Air 08/02 2331 98.6 67 20 112/66 95 Room Air 08/02 1559 98.7 62 19 118/67 92 Intake & Output 08/03 1600 08/03 0800 08/03 0000 Intake Total 650 Output Total 200 350 Balance -200 300 Intake, Oral 650 Number 1 Bowel Movements Output, Urine 200 350 Physical Exam Other Physical Findings: She appears comfortable in no acute distress Extremities right fourth toe dressing intact; tophaceous deposits on other toes as previously noted Results Last 24 Hours of Lab Results: Laboratory Tests 08/03 614 Hematology CBC w Diff NO MAN DIFF REQ WBC (4.8 - 10.8 /CUMM) 6.3 RBC (4.20 - 5.40 /CUMM) 4.16 L Hgb (12.0 - 16.0 G/DL) 12.2 Hct (37 - 47 %) 36.7 L MCV (81.0 - 99.0 FL) 88.3 MCH (27.0 - 31.0 PG) 29.3 RDW (11.5 - 14.5 %) 14.7 H Plt Count (130 - 400 /CUMM) 124 L MPV (7.4 - 10.4 FL) 9.0 Gran % (42.2 - 75.2 %) 68.7 Lymphocytes % (20.5 - 51.1 %) 18.2 L Monocytes % (1.7 - 9.3 %) 11.4 H Eosinophils % (0 - 5 %) 1.3 Basophils % (0.0 - 2.0 %) 0.4 Absolute Granulocytes (1.4 - 6.5 /CUMM) 4.3 Absolute Lymphocytes (1.2 - 3.4 /CUMM) 1.1 L Absolute Monocytes (0.10 - 0.60 /CUMM) 0.7 H Absolute Eosinophils (0.0 - 0.7 /CUMM) 0.1 Absolute Basophils (0.0 - 0.2 /CUMM) 0 PUBS MCHC (33.0 - 37.0 G/DL) 33.2 Last 24 Hours of Carlos Results: OR culture August 01 labeled right fourth toe bone positive for scant growth of coag-negative Staph Assessment/Plan Impression: Stable status post debridement yesterday of the right fourth toe for what was most likely gout, given her elevated uric acid and evidence of tophaceous deposits elsewhere. She remains afebrile with white blood cell count normal off antibiotics. The coag-negative Staph isolated from the OR culture likely represents skin colonization and does not require treatment. Rheumatology input appreciated with recommendations noted. She apparently is scheduled for return to the OR today for wound closure. Suggestion: 1. Await return to the OR later today 2. Follow Rheumatology recommendations 3. Follow-up final pathology 4. Continue to follow off antibiotics
--- NOTE | 2016-08-03 12:29 | Operative Report ---
Operative/Inv Procedure Report Surgery Date: 08/03/16 Name of Procedure: 1 Open incision and drainage deep to the fashion with exposure of the extensor tendon and tendon sheath multiple sites right foot 2 delayed primary closure of open surgical wound right foot 3 debridement of necrotic bone right foot 4 intraoperative administration of ankle block anesthesia 5 excisional debridement Pre-Operative Diagnosis: 1 open necrotic wound right foot 2 osteomyelitis right foot 3 chronic tophaceous gout right foot Post-Operative Diagnosis: The same Estimated Blood Loss: less than 50ml Surgeon/[place] Hanger: HANNAH DUMONT DPM Anesthesia: moderate sedation, block Operative/Procedure Note Note: After obtaining informed consent the patient was brought to the operating room and placed on the operating table in the supine position. The patient isn't securely fastened to the operating table utilizing safety belt. After the administration of IV sedation, 10 mL of 0.5% Marcaine plain was infiltrated about the patient's right ankle. The right foot and ankle and screw prepped and draped in usual aseptic manner. 2 g of Ancef were delivered intravenously times one dose. Attention directed the right foot, where a full-thickness necrotic was identified. A 15 blade visualized sharply revised skin margins. Dissection was then carried down deep to the fashion with exposure of the extensor tendon and tendon sheath multiple sites both proximally and distally. All necrotic nonviable infected tissue sharply evacuated from the wound bed. Necrotic bone was identified within the wound bed and this was debrided and passed from the operative field. The open wound was then irrigated with 3 L normal sterile saline fissure 50,000 units of bacitracin. Following this foot was redraped and the surgeon's top was changed clean gloves. Any bleeding vessels identified were cauterized or ligated as encountered. A dorsal medial dorsal lateral flaps were then undermined and mobilized and advanced towards the open portion the wound. The deep side of the flap was held with 4-0 Vicryl and the skin edges reapproximated 4-0 nylon. Incision was dressed with Xeroform 4 x 4's and Kerlix. The patient was noted to tolerate both procedure and anesthesia well and the patient was transported from the operating room to recovery by sent stable. There was some minimal dusky changes identified to the distal tip of the fourth digit. This was noted to improve in recovery.
[2016-08-03 13:45] VITALS: BP 112/58
--- NOTE | 2016-08-03 14:11 | NUR ---
1345 PT BACK FROM OR, A&Ox2, VSS. VITALS TEMP 97.4, SPO2 91 ON ROOM AIR, 96 ON 1LNC, RR 18, HR 61, BP 112/58
[2016-08-03 15:50] VITALS: BP 112/58
[2016-10-04] MEDS ORDERED: TOPROL XL25 M1 PO (10:31)
[2016-10-10] MEDS ORDERED: KEFLEX500 M1 PO (16:56)
[2016-10-11] MEDS ORDERED: METOPROLOL SUCC25 M1 PO (15:35)
[2016-10-12] MEDS ORDERED: ELIQUIS2.5 M1 PO (09:41)
== END 2016-08-03 18:52 | DRG 516 ==
LOC: ENRESERVTM → ENRESERVDT → ERH 10:27 → ENPENDDIS 13:33 → 2NB 13:33 → ERHI 13:33 → 2NB 16:56
PROVIDERS: Internal Medicine; Internal Medicine Interventional Cardiology; Physician Assistant; ADMIT Internal Medicine
PROC: 0QBQ0ZZ Excision of Right Toe Phalanx, Open Approach (ICD-10-PCS; principal; 2016-08-01)
PROC: 0HQMXZZ Repair Right Foot Skin, External Approach (ICD-10-PCS; 2016-08-03)
PROC: 0QBQ0ZZ Excision of Right Toe Phalanx, Open Approach (ICD-10-PCS; 2016-08-03)
DX: M1A.9XX1 Chronic gout, unspecified, with tophus (tophi) (principal); F05 Delirium due to known physiological condition; I27.2 Other secondary pulmonary hypertension; G30.9 Alzheimer's disease, unspecified; F02.80 Dementia in other diseases classified elsewhere, unspecified severity, without behavioral disturbance, psychotic disturbance, mood disturbance, and anxiety; I48.2 Chronic atrial fibrillation; Z79.01 Long term (current) use of anticoagulants; I25.10 Atherosclerotic heart disease of native coronary artery without angina pectoris; I25.2 Old myocardial infarction; Z95.1 Presence of aortocoronary bypass graft; Z95.0 Presence of cardiac pacemaker; I10 Essential (primary) hypertension
CPT/HCPCS: 2NBP; 2NBSP; 87070; 87075; 36415; 73660-LT; 73660-RT; 82436; 87040; 87086; 87147; 88307; 93005; 93010; 97116-GO; 97161-GP; 97530-GO; J2001